=== PATIENT | male | born 1945 | race Caucasian/White ===

== ENCOUNTER 2018-02-19 10:18 | Outpatient (REF) | payer MEDICARE, OTHER, SELFPAY ==
[2018-02-19 22:02] LABS: Anion Gap 7.6 mmol/L (3-11); BUN 16 mg/dL (7-18); CO2 26.4 mmol/L (21.0-32.0); CREATININE 1.08 mg/dL (0.70-1.30); Calcium 8.7 mg/dL (8.5-10.1); Chloride 103 mmol/L (98-107); Cholesterol 196 mg/dL (50-200); Glucose 101 mg/dL (70-100); HDL Cholesterol 39 mg/dL (40-60); LDL CHOLESTEROL 138 mg/dL (<100); Potassium 4.7 mmol/L (3.5-5.1); Sodium 137 mmol/L (136-145); Triglyceride 103 mg/dL (30-150)
== END 2018-02-19 10:38 ==
LOC: NCHCN 10:18
PROVIDERS: PCP Nurse Practitioner Family; Visit Provider Nurse Practitioner Family
DX: I10 Essential (primary) hypertension (principal); E78.5 Hyperlipidemia, unspecified
CPT/HCPCS: 80048; 80061; 83721

== ENCOUNTER 2018-05-19 09:22 | Outpatient (REF) | payer MEDICARE, OTHER, SELFPAY ==
[2018-05-19 22:24] LABS: Cholesterol 140 mg/dL (50-200); HDL Cholesterol 37 mg/dL (40-60); LDL CHOLESTEROL 84 mg/dL (<100); Triglyceride 82 mg/dL (30-150)
== END 2018-05-19 09:42 ==
LOC: NCHCN 09:22
PROVIDERS: PCP Nurse Practitioner Family; Visit Provider Nurse Practitioner Family
DX: E78.5 Hyperlipidemia, unspecified (principal)
CPT/HCPCS: 80061; 83721

== ENCOUNTER 2018-06-30 01:26 | Outpatient (CLI) | payer MEDICARE, OTHER, SELFPAY ==
--- NOTE | 2018-06-30 13:01 | DI.CTLCSR_ITS ---
SYMPTOMS/DIAGNOSIS: CIGARETTE SMO[employer]ER, F17.210 CT SCAN OF THE CHEST: CT scan of the chest was performed according to the lung cancer screening protocol. Comparison post contrast CT scan is from 12/04/2011. There is atherosclerosis of the thoracic aorta, but no aneurysmal dilatation is present. The heart size is within normal limits. No significant pericardial effusion is seen. Coronary artery calcifications are present. No significant thoracic adenopathy is present. No pleural effusion or pneumothorax is present. There are emphysematous changes seen in the lungs. No noncalcified pulmonary nodules are present. There are scattered ground-glass opacities in the lungs, particularly in the bases. These are nonspecific. This may represent a pneumonitis including UIP or BOOP. Atypical pneumonia or hypersensitivity pneumonitis should be considered. This may also represent changes of atelectasis or pulmonary edema. The tracheobronchial tree is unremarkable. Degenerative changes are seen in the spine. Old healed fractures are seen in the left ribs. IMPRESSION: No pulmonary nodules. Category 1. Please see the above discussion for complete details. Lung-RAD Category: 1- Negative Lung- RAD Management of Findings: Continue annual LDCT screening in 12 months
== END 2018-06-30 01:46 ==
PROVIDERS: PCP Nurse Practitioner Family; Visit Provider Nurse Practitioner Family
DX: Z12.2 Encounter for screening for malignant neoplasm of respiratory organs (principal); F17.210 Nicotine dependence, cigarettes, uncomplicated; J43.9 Emphysema, unspecified; J98.4 Other disorders of lung
CPT/HCPCS: G0297

== ENCOUNTER 2018-12-08 16:33 | Outpatient (REF) | payer MEDICARE, OTHER, SELFPAY ==
[2018-12-08 22:21] LABS: Anion Gap 11.6 mmol/L (3-11); BUN 10 mg/dL (7-18); CO2 25.4 mmol/L (21.0-32.0); CREATININE 1.29 mg/dL (0.70-1.30); Calcium 8.8 mg/dL (8.5-10.1); Chloride 101 mmol/L (98-107); Estimated GFR 54.75 (mL/min/1.73m2); Glucose 79 mg/dL (70-100); Potassium 4.9 mmol/L (3.5-5.1); Sodium 138 mmol/L (136-145)
== END 2018-12-08 16:53 ==
LOC: NCHCN 16:33
PROVIDERS: PCP Nurse Practitioner Family; Visit Provider Nurse Practitioner Family
DX: I10 Essential (primary) hypertension (principal)
CPT/HCPCS: 80048

== ENCOUNTER 2019-06-24 10:16 | Outpatient (REF) | payer MEDICARE, OTHER, SELFPAY ==
[2019-06-24 19:15] LABS: ALT 21 U/L (16-63); AST 17 U/L (15-37); Calculated LDL 76 mg/dL (<100); Cholesterol 127 mg/dL (<200); Glucose 90 mg/dL (74-106); HDL Cholesterol 35 mg/dL (40-60); Triglyceride 80 mg/dL (<150)
[2019-06-24 19:48] LABS: Creatine Kinase 93 U/L (39-308)
== END 2019-06-24 10:36 ==
LOC: NCHCN 10:16
PROVIDERS: PCP Nurse Practitioner Family; Visit Provider Nurse Practitioner Family
DX: I10 Essential (primary) hypertension (principal); E78.5 Hyperlipidemia, unspecified; I71.4 Abdominal aortic aneurysm, without rupture; F17.209 Nicotine dependence, unspecified, with unspecified nicotine-induced disorders; R91.8 Other nonspecific abnormal finding of lung field
CPT/HCPCS: 80061; 82550; 82947; 84450; 84460

== ENCOUNTER 2019-09-21 14:08 | Outpatient (REF) | payer MEDICARE, OTHER, SELFPAY ==
[2019-09-21 19:43] LABS: ALT 18 U/L (16-63); AST 15 U/L (15-37); Albumin 4.4 g/dL (3.4-5.0); Alkaline Phosphatase 95 U/L (46-116); Anion Gap 11.9 mmol/L (3-11); BUN 17 mg/dL (7-18); Bilirubin, Total 0.5 mg/dL (0.2-1.0); CO2 23.1 mmol/L (21.0-32.0); CREATININE 1.18 mg/dL (0.70-1.30); Calcium 9.1 mg/dL (8.5-10.1); Chloride 102 mmol/L (98-107); Glucose 87 mg/dL (74-106); HDL Cholesterol 31 mg/dL (40-60); LDL CHOLESTEROL 69 mg/dL (<100); Potassium 4.8 mmol/L (3.5-5.1); Sodium 137 mmol/L (136-145); Total Protein 7.3 g/dL (6.4-8.2)
[2019-09-21 20:10] LABS: Creatine Kinase 94 U/L (39-308); NT-proBNP 183 pg/mL (<300)
== END 2019-09-21 14:28 ==
LOC: NCHCN 14:08
PROVIDERS: PCP Nurse Practitioner Family; Visit Provider Nurse Practitioner Family
DX: E87.5 Hyperkalemia (principal); I10 Essential (primary) hypertension; D22.9 Melanocytic nevi, unspecified; R60.9 Edema, unspecified; M87.059 Idiopathic aseptic necrosis of unspecified femur
CPT/HCPCS: 80053; 82550; 83721; 83718; 83880

== ENCOUNTER 2019-10-05 13:52 | Outpatient (REF) | payer MEDICARE, OTHER, SELFPAY ==
[2019-10-05 19:31] LABS: Anion Gap 9.6 mmol/L (3-11); BUN 18 mg/dL (7-18); CO2 24.4 mmol/L (21.0-32.0); CREATININE 1.18 mg/dL (0.70-1.30); Calcium 8.6 mg/dL (8.5-10.1); Chloride 104 mmol/L (98-107); Glucose 99 mg/dL (74-106); Potassium 4.6 mmol/L (3.5-5.1); Sodium 138 mmol/L (136-145)
== END 2019-10-05 14:12 ==
LOC: NCHCN 13:52
PROVIDERS: PCP Nurse Practitioner Family; Visit Provider Nurse Practitioner Family
DX: R60.9 Edema, unspecified (principal)
CPT/HCPCS: 80048

== ENCOUNTER 2019-10-25 16:07 | Outpatient (REF) | payer MEDICARE, OTHER, SELFPAY ==
[2019-10-25 21:08] LABS: Anion Gap 12.2 mmol/L (3-11); BUN 12 mg/dL (7-18); CO2 22.8 mmol/L (21.0-32.0); Calcium 8.7 mg/dL (8.5-10.1); Chloride 102 mmol/L (98-107); Estimated GFR 54.11 (mL/min/1.73m2); Glucose 119 mg/dL (74-106); Potassium 4.5 mmol/L (3.5-5.1); Sodium 137 mmol/L (136-145)
== END 2019-10-25 16:27 ==
LOC: NCHCN 16:07
PROVIDERS: PCP Nurse Practitioner Family; Visit Provider Nurse Practitioner Family
DX: R60.9 Edema, unspecified (principal); I10 Essential (primary) hypertension
CPT/HCPCS: 80048

== ENCOUNTER 2019-11-22 18:58 | Outpatient (REF) | payer MEDICARE, OTHER, SELFPAY ==
[2019-11-22 20:53] LABS: HCT 43.1 % (40.0-50.0); HGB 14.6 g/dL (13.5-17.5); MCH 31.7 pg (27.0-33.0); MCHC 33.9 % (32.0-36.0); MCV 93.5 fL (80-95); MPV 12.1 fL (8.0-11.0); Platelet Count 188 10^3/uL (130-400); RBC 4.61 10^6/uL (4.36-5.78); RDW 14.1 % (11.8-14.1); RDW-SD 47.8 fL; WBC 6.37 10^3/uL (4.4-10.8)
[2019-11-22 21:47] LABS: Vitamin D 25 Total 6.9 ng/ml (30-100)
[2019-11-22 21:54] LABS: TSH 1.69 uIU/mL (0.36-3.74); Vitamin B12 256 pg/mL (193-986)
== END 2019-11-22 19:18 ==
LOC: NCHCN 18:58
PROVIDERS: PCP Nurse Practitioner Family; Visit Provider Nurse Practitioner Family
DX: I10 Essential (primary) hypertension (principal); R53.83 Other fatigue; E55.9 Vitamin D deficiency, unspecified
CPT/HCPCS: 80053; 80061; 82306; 82550; 85027; 82607; 84443

== ENCOUNTER 2020-01-17 05:43 | Outpatient (REF) | payer MEDICARE, OTHER, SELFPAY ==
[2020-01-17 20:09] LABS: Vitamin D 25 Total 35.2 ng/ml (30-100)
== END 2020-01-17 06:03 ==
LOC: NCHCN 05:43
PROVIDERS: PCP Nurse Practitioner Family; Visit Provider Nurse Practitioner Family
DX: E55.9 Vitamin D deficiency, unspecified (principal)
CPT/HCPCS: 82306